=== PATIENT | female | born 1995 | race Caucasian/White ===

== ENCOUNTER 2022-11-12 13:54 | Emergency (ER) | payer MEDICAID ==
[~2022-11-12] VITALS: Ht 154.9 cm; Wt 50.0 kg
[2022-11-12 13:57] VITALS: BP 134/73
[2022-11-12] MEDS ORDERED: ONDA4TAB12 PO (15:07)
[2022-11-12] MEDS ORDERED: HYDR-3965 PO (15:07)
[2022-11-12] MEDS ORDERED: CLIN300C70 PO (15:07)
[2022-11-12] MEDS ORDERED: ketorolac tromethamine 15mg/ml inj. IM ONE (15:30)
== END 2022-11-12 15:42 | disposition home or self-care (01) ==
LOC: ER 13:55
DX: K08.89 Other specified disorders of teeth and supporting structures (principal); Z88.0 Allergy status to penicillin; Z79.899 Other long term (current) drug therapy; Z79.1 Long term (current) use of non-steroidal anti-inflammatories (NSAID); Z79.2 Long term (current) use of antibiotics
CPT/HCPCS: 99283